=== PATIENT | female | born 1955 | race Asian ===

== ENCOUNTER 2018-09-11 10:01 | Emergency (ER) | payer OTHER ==
[~2018-09-11] VITALS: Ht 157.5 cm; Wt 58.1 kg
[2018-09-11 10:34] VITALS: BP 119/91; Ht 157.5 cm; Wt 58.1 kg
== END 2018-09-11 12:27 | disposition home or self-care (01) ==
LOC: ED 10:01
DX: H60.501 Unspecified acute noninfective otitis externa, right ear (principal); Z88.0 Allergy status to penicillin

== ENCOUNTER 2018-09-17 12:17 | Emergency (ER) | payer OTHER ==
[~2018-09-17] VITALS: Ht 154.9 cm; Wt 57.8 kg
[2018-09-17 12:22] VITALS: Ht 154.9 cm; Wt 57.8 kg
[2018-09-17 13:09] VITALS: BP 117/76
== END 2018-09-17 13:09 | disposition home or self-care (01) ==
LOC: ED 12:17
DX: H60.91 Unspecified otitis externa, right ear (principal); H61.21 Impacted cerumen, right ear

== ENCOUNTER 2018-09-19 22:21 | Emergency (ER) | payer OTHER ==
[~2018-09-19] VITALS: Ht 152.4 cm; Wt 57.6 kg
[2018-09-19 23:17] VITALS: Ht 152.4 cm; Wt 57.6 kg
[2018-09-20 01:13] VITALS: BP 129/51
== END 2018-09-20 01:13 | disposition home or self-care (01) ==
LOC: ED 22:21
DX: H60.91 Unspecified otitis externa, right ear (principal); H66.41 Suppurative otitis media, unspecified, right ear; Z88.0 Allergy status to penicillin

== ENCOUNTER 2018-11-10 06:36 | Day surgery (SDC) | payer OTHER ==
[~2018-11-10] VITALS: Ht 160 cm; Wt 57.6 kg
[2018-11-10 07:11] VITALS: BP 106/79
[2018-11-10 13:27] VITALS: BP 106/63
== END 2018-11-10 10:25 | disposition home or self-care (01) ==
LOC: DS 06:36 → GI 07:30 → OR 07:30 → DS 10:25
PROVIDERS: Internal Medicine Gastroenterology
PROC: 0DBF8ZZ Excision of Right Large Intestine, Via Natural or Artificial Opening Endoscopic (ICD-10-PCS; principal; 2018-11-10 07:30)
DX: Z12.11 Encounter for screening for malignant neoplasm of colon (principal); K63.5 Polyp of colon
CPT/HCPCS: 45378; J1200; J1610; J2250; J2310; J3010; J3490